=== PATIENT | female | born 1965 | race Caucasian/White ===

== ENCOUNTER → 2018-02-05 | Outpatient (CLI) | payer BC ==
[2018-02-05 12:59] LABS: HCT 44.5 % (34.0-46.0); MCH 29.9 pg (25.0-35.0); MCHC 33.8 g/dL (31.0-37.0); MCV 88.5 fL (80.0-100.0); Mean Platelet Volume 8.4; Platelet Count 292 k/uL (150-450); RBC 5.03 m/uL (3.80-5.40); RDW 12.5 % (11.5-15.5); WBC 7.7 k/uL (3.8-10.6)
[2018-02-05 13:00] LABS: Basophils % (A) 1 %; Eosinophils # (A) 0.3 k/uL (0-0.7); Eosinophils % (A) 4 %; Lymphocytes # (A) 1.8 k/uL (1.0-4.8); Lymphocytes % (A) 23 %; Monocytes # (A) 0.4 k/uL (0-1.0); Monocytes % (A) 6 %; Neutrophils # (A) 4.9 k/uL (1.3-7.7); Neutrophils % (A) 64 %
[2018-02-05 23:11] LABS: Albumin 4.1 g/dL (3.80-4.90); Albumin/Globulin Ratio 2.16 (1.20-2.10); Anion Gap 6.6 mmol/L (4.00-12.00); Calcium 9.3 mg/dL (8.7-10.3); Carbon Dioxide 26.4 mmol/L (21.6-31.8); Globulin 1.9 g/dL (1.6-3.3); Potassium 4.2 mmol/L (3.5-5.5); Total Bilirubin 0.4 mg/dL (0.3-1.2)
[2018-02-05 23:43] LABS: Hemoglobin A1C 11.6 % (4.0-6.0)
== END ==
LOC: LABWHC1 11:46
PROVIDERS: ATTEND Family Medicine
DX: E11.9 Type 2 diabetes mellitus without complications (principal); E78.00 Pure hypercholesterolemia, unspecified
CPT/HCPCS: 36415; 80053; 80061; 82043; 82570; 83036; 85025

== ENCOUNTER → 2018-02-05 | Outpatient (CLI) | payer BC | END | disposition home or self-care (01) | LOC: LABPAT 11:43 | PROVIDERS: ATTEND Obstetrics & Gynecology | DX: Z01.818 Encounter for other preprocedural examination (principal); N87.9 Dysplasia of cervix uteri, unspecified | CPT/HCPCS: 93005 ==

== ENCOUNTER → 2018-02-09 | Outpatient (CLI) | payer BC ==
--- NOTE | 2018-02-11 09:32 | MM ---
Reason for exam: screening (asymptomatic). Last mammogram was performed 3 years and 1 month ago. History: Patient is postmenopausal. Family history of breast cancer in mother at age 70. Physical Findings: A clinical breast exam by your physician is recommended on an annual basis and results should be correlated with mammographic findings. MG 3D Screening Mammo W/Cad Bilateral CC and MLO view(s) were taken. Prior study comparison: January 03, 2015, bilateral MG 3d screening mammo w/cad. There are scattered fibroglandular densities. No significant changes when compared with prior studies. ASSESSMENT: Negative, BI-RAD 1 RECOMMENDATION: Routine screening mammogram of both breasts in 1 year.
== END | disposition home or self-care (01) ==
LOC: RADMAMWWP 09:58
PROVIDERS: ATTEND Family Medicine
DX: Z12.31 Encounter for screening mammogram for malignant neoplasm of breast (principal)
CPT/HCPCS: 77063; 77067

== ENCOUNTER → 2018-07-30 | Outpatient (CLI) | payer BC ==
[2018-07-30 16:18] LABS: African American GFR (CKD) 113.8 (60.0-200.0); Albumin/Globulin Ratio 1.82 (1.60-3.17); Anion Gap 4.4 mmol/L (4.00-12.00); BUN/Creat Ratio 21.43 Ratio (12.00-20.00); Calcium 9.2 mg/dL (8.7-10.3); Carbon Dioxide 27.6 mmol/L (21.6-31.8); Globulin 2.2 g/dL (1.6-3.3); LDL Cholesterol,Calculated 137.2 mg/dL (0.0-131.0); Potassium 4.2 mmol/L (3.5-5.5); Total Bilirubin 0.6 mg/dL (0.3-1.2); Total Protein 6.2 g/dL (6.2-8.2); VLDL Calculation 44.8 mg/dL (5.00-40.00)
[2018-07-30 17:16] LABS: Hemoglobin A1C 11.4 % (4.0-6.0)
== END | disposition home or self-care (01) ==
LOC: LABWHC1 10:53
PROVIDERS: ATTEND Family Medicine
DX: E78.5 Hyperlipidemia, unspecified (principal); I10 Essential (primary) hypertension; E11.9 Type 2 diabetes mellitus without complications
CPT/HCPCS: 36415; 80053; 80061; 82043; 82570; 83036

== ENCOUNTER → 2018-07-30 | Outpatient (CLI) | payer BC ==
[2018-07-30 11:25] LABS: Basophils % (A) 1 %; Eosinophils # (A) 0.2 k/uL (0-0.7); Eosinophils % (A) 3 %; HCT 45.7 % (34.0-46.0); Lymphocytes # (A) 1.6 k/uL (1.0-4.8); Lymphocytes % (A) 25 %; MCH 28.9 pg (25.0-35.0); MCHC 32.9 g/dL (31.0-37.0); MCV 87.8 fL (80.0-100.0); Mean Platelet Volume 9.4; Monocytes # (A) 0.5 k/uL (0-1.0); Monocytes % (A) 8 %; Neutrophils # (A) 3.9 k/uL (1.3-7.7); Neutrophils % (A) 61 %; Platelet Count 242 k/uL (150-450); RDW 15.3 % (11.5-15.5); WBC 6.3 k/uL (3.8-10.6)
== END | disposition home or self-care (01) ==
LOC: LABPAT 10:51
PROVIDERS: ATTEND Obstetrics & Gynecology
DX: Z01.812 Encounter for preprocedural laboratory examination (principal); N87.1 Moderate cervical dysplasia
CPT/HCPCS: 85025

== ENCOUNTER 2018-08-05 08:54 | Day surgery (SDC) | payer BC ==
[2018-08-03 14:22] VITALS: BMI 34.0
[~2018-08-05 08:54] MED LIST: DEXAMETHASONE SOD PHOSPHATE 10 MG/ML 1 ML VIAL IV ONE; HYDROmorphone 0.5 MG/0.5 ML SYRINGE IVP PRN; LACTATED RINGERS 1,000 ML IV SCH; MIDAZOLAM 2 MG/2 ML VIAL IV PRN; ONDANSETRON 4 MG/2 ML VIAL IVP ONE; SCOPOLAMINE 1.5MG/72HR PATCH TRANSDERM ONE; ceFAZolin IN SWFI 2 GM/20 ML SYRINGE IVP ONE
[2018-08-05 09:31] LABS: Glucose,Whole Blood 272 mg/dL (75-99)
[2018-08-05] MEDS ORDERED: INSULIN ASPART (NovoLOG) 100 UNIT/ML VIAL SQ ONE (09:32)
[2018-08-05] MEDS ORDERED: KETOROLAC 30 MG/ML 1 ML VIAL IVP PRN (10:26)
[2018-08-05] MEDS ORDERED: SIMETHICONE 80 MG CHEWABLE PO PRN (10:26)
[2018-08-05] MEDS ORDERED: ONDANSETRON 4 MG/2 ML VIAL IVP PRN (10:26)
[2018-08-05] MEDS ORDERED: diphenhydrAMINE 50 MG/ML 1 ML VIAL IVP PRN (10:26)
[2018-08-05] MEDS ORDERED: METOCLOPRAMIDE 5 MG/ML 2 ML VIAL IVP PRN (10:26)
[2018-08-05] MEDS ORDERED: Acetaminophen-Codeine 300-30mg TAB PO PRN ×2 (10:26)
[2018-08-05] MEDS ORDERED: IBUPROFEN 600 MG TAB PO PRN (10:26)
[2018-08-05] MEDS ORDERED: LACTATED RINGERS 1,000 ML IV SCH (10:30)
[2018-08-05 10:33] LABS: Glucose,Whole Blood 264 mg/dL (75-99)
[2018-08-05] MEDS ORDERED: PROPOFOL 10 MG/ML 20 ML VIAL IV ONE (10:38)
[2018-08-05] MEDS ORDERED: fentaNYL (PF) 50 MCG/ML 2 ML AMP ONE (10:38)
[2018-08-05] MEDS ORDERED: MIDAZOLAM 2 MG/2 ML VIAL ONE (10:38)
[2018-08-05] MEDS ORDERED: FERRIC SUBSULFATE (MONSELS) JAR TOPICAL ONE (11:00)
[2018-08-05] MEDS ORDERED: IODINE/POTASS IOD (LUGOLS) 8 ML BTL TOPICAL ONE (11:00)
--- NOTE | 2018-08-05 11:14 | P.OP ---
Date of Procedure: 08/05/18 Preoperative Diagnosis: #1. Endocervical moderate dysplasia Postoperative Diagnosis: Same Procedure(s) Performed: #1. Cold knife cervical conization Anesthesia: other (Gen. by face mask) Surgeon: Santana Novak Estimated Blood Loss (ml): 5 IV fluids (ml): 600 Urine output (ml): 100 Pathology: other (Cervical cone) Condition: stable Disposition: PACU Operative Findings: Intraoperatively, the cervix was noted to be relatively flush with the apex of the vagina indicating a possible history of previous cervical surgery. After staining with Lugol strong iodine, there was no ectocervical areas that did not take up stain indicating no external lesions. A cone was taken to the depth of approximately 2 cm by approximately 1-1/2 cm in sideways dimensions with the endocervix noted to be traveling directly through the middle of the cone. It was removed intact and sent for pathological diagnoses. Description of Procedure: The patient was prepped and draped in usual fashion after general anesthesia was administered by the anesthesiologist. A weighted speculum was placed and the bladder drained of approximately 100 mL of clear joselin urine. The anterior lip of the cervix was grasped with a single-tooth tenaculum and the unusual and relatively flat architecture of the cervical vaginal junction was noted. A stay suture was placed from 10:00 to 8:00 at the cervicovaginal junction into the body of the cervix using 0 Vicryl and firmly tied down. A mirroring stitch was placed from 2:00 to 4:00 on the other side and firmly tied down. The tenaculum was then removed. The cervix was stained with Lugol's strong iodine and there was noted to be no ectocervical areas that were nonstaining. Approximately 1/2- 3/4 of the centimeter of margin was left outside the cervical os where the incision was intended to be made. A uterine sound was placed through the cervix to the fundus of the uterus for guidance. An 11 blade scalpel was utilized to make a cone shaped wedge around the os to a depth of approximately 2 cm circumferentially after which time the sound was removed and the colon grasped from anterior to posterior. Traction as well as continued dissection using the scalpel were utilized to divided at its base. The probe was passed through the cone and noted to be symmetrical throughout with the endocervix directly in the middle of the cone. The bed of the cone was then thoroughly cauterized from base to outer aspect with ball cautery. One application of Monsel's solution was then applied at the end. There was minimal ongoing bleeding at any time during the procedure and no ongoing bleeding at the end. The stay sutures were left in place but cut short and all instrumentation removed. Estimated blood loss for the case was less than 5 mL. There were no complications. All sponge, instrument, and needle counts were correct. The patient tolerated the procedure well and proceeded to the recovery room in stable condition.
[2018-08-05 11:23] VITALS: TEMP 97.4
[2018-08-05 11:31] LABS: Glucose,Whole Blood 235 mg/dL (75-99)
[2018-08-05 12:04] VITALS: RESP 16
[2018-08-05] MEDS ORDERED: SODIUM CHLORIDE 0.9% 1,000 ML IV ONE (12:07)
[2018-08-05 12:29] VITALS: BP 154/94; PULSE 81
== END 2018-08-05 12:47 | disposition home or self-care (01) ==
LOC: OR 08:54
PROVIDERS: ATTEND Obstetrics & Gynecology
DX: N87.1 Moderate cervical dysplasia (principal); Z79.1 Long term (current) use of non-steroidal anti-inflammatories (NSAID); Z79.891 Long term (current) use of opiate analgesic; Z79.899 Other long term (current) drug therapy; Z83.3 Family history of diabetes mellitus; Z82.49 Family history of ischemic heart disease and other diseases of the circulatory system; Z80.3 Family history of malignant neoplasm of breast; Z80.0 Family history of malignant neoplasm of digestive organs; F17.210 Nicotine dependence, cigarettes, uncomplicated
CPT/HCPCS: 88307; 57520; J2250; J2405; J3010; J2704

== ENCOUNTER → 2019-12-15 | Outpatient (CLI) | payer SELFPAY ==
[2019-12-15 13:39] LABS: Basophils # (A) 0.1 k/uL (0-0.2); Basophils % (A) 1 %; Eosinophils # (A) 0.2 k/uL (0-0.7); Eosinophils % (A) 3 %; HCT 45.5 % (34.0-46.0); Lymphocytes # (A) 1.8 k/uL (1.0-4.8); Lymphocytes % (A) 21 %; MCH 30.2 pg (25.0-35.0); MCHC 32.9 g/dL (31.0-37.0); MCV 91.6 fL (80.0-100.0); Mean Platelet Volume 8.7; Monocytes # (A) 0.5 k/uL (0-1.0); Monocytes % (A) 6 %; Neutrophils # (A) 5.7 k/uL (1.3-7.7); Neutrophils % (A) 68 %; Platelet Count 248 k/uL (150-450); RBC 4.97 m/uL (3.80-5.40); RDW 12.3 % (11.5-15.5); WBC 8.4 k/uL (3.8-10.6)
[2019-12-15 20:04] LABS: Albumin 4.3 g/dL (3.80-4.90); Albumin/Globulin Ratio 2.15 (1.60-3.17); Anion Gap 6.1 mmol/L (4.00-12.00); BUN/Creat Ratio 21.43 Ratio (12.00-20.00); Calcium 9.2 mg/dL (8.7-10.3); Carbon Dioxide 25.9 mmol/L (21.6-31.8); Chol/HDL Ratio 7.39; LDL Cholesterol,Calculated 149.4 mg/dL (0.0-131.0); Non-African American GFR(CKD) 97.5 (60.0-200.0); Potassium 4.2 mmol/L (3.5-5.5); Total Bilirubin 0.5 mg/dL (0.3-1.2); Total Protein 6.3 g/dL (6.2-8.2); VLDL Calculation 61.6 mg/dL (5.00-40.00)
[2019-12-15 22:01] LABS: Microalbumin Creatinine Ratio <30 mg/g Creat (0-30); Urine Creatinine 18.4 mg/dL
[2019-12-15 22:13] LABS: Hemoglobin A1C 9.7 % (4.0-6.0)
== END | disposition home or self-care (01) ==
LOC: LABWHC1 12:33
PROVIDERS: ATTEND Family Medicine
DX: Z00.00 Encounter for general adult medical examination without abnormal findings (principal); E78.5 Hyperlipidemia, unspecified; F17.210 Nicotine dependence, cigarettes, uncomplicated; E11.9 Type 2 diabetes mellitus without complications
CPT/HCPCS: 36415; 80053; 80061; 82043; 82570; 83036; 85025

== ENCOUNTER → 2021-09-05 | Outpatient (CLI) | payer BC ==
[2021-09-05 17:38] LABS: Basophils # (A) 0.04 X 10*3/uL (0.00-0.10); Basophils % (A) 0.6 %; Eosinophils # (A) 0.19 X 10*3/uL (0.04-0.35); Eosinophils % (A) 2.7 %; HCT 44.8 % (37.2-46.3); HGB 14.5 g/dL (12.0-15.0); Immature Grans, Automated 0.1 %; Lymphocytes # (A) 1.49 X 10*3/uL (0.90-5.00); Lymphocytes % (A) 21.5 %; MCH 28.8 pg (27.0-32.0); MCHC 32.4 g/dL (32.0-37.0); MCV 88.9 fL (80.0-97.0); Monocytes % (A) 8.7 %; NRBC Per 100 WBC 0 /100 WBCS (0.0-0.0); Neutrophils # (A) 4.59 X 10*3/uL (1.80-7.70); Neutrophils % (A) 66.4 %; Platelet Count 289 X 10*3/uL (140-440); RBC 5.04 X 10*6/uL (4.10-5.20); RDW 12.3 % (11.5-14.5); WBC 6.92 X 10*3/uL (4.50-10.00)
[2021-09-05 18:06] LABS: ALT 20 U/L (8-44); AST 15 U/L (13-35); African American GFR (CKD) 103.2 (60.0-200.0); Albumin 4.1 g/dL (3.8-4.9); Albumin/Globulin Ratio 1.78 (1.60-3.17); Alkaline Phosphatase 88 U/L (41-126); BUN/Creat Ratio 22.79 Ratio (12.00-20.00); Calcium 9.5 mg/dL (8.7-10.3); Carbon Dioxide 25.3 mmol/L (20.0-27.5); Chloride 104 mmol/L (96-109); Globulin 2.3 g/dL (1.6-3.3); Glucose 228 mg/dL (70-110); Iron 38 ug/dL (50-170); Non-African American GFR(CKD) 89.1 (60.0-200.0); Potassium 4.5 mmol/L (3.5-5.5); Sodium 140 mmol/L (135-145); Total Bilirubin <0.15 mg/dL (0.30-1.20); Total Iron Binding Capacity 312 ug/dL (228-460); Total Protein 6.4 g/dL (6.2-8.2)
[2021-09-05 18:27] LABS: Chol/HDL Ratio 10.37 Ratio
[2021-09-06 01:31] LABS: Microalbumin Creatinine Ratio <30 mg/g Creat (0-30); Urine Creatinine 95.7 mg/dL (28.0-217.0)
== END | disposition home or self-care (01) ==
LOC: LABWHC1 10:38
PROVIDERS: ATTEND Family Medicine
DX: E11.9 Type 2 diabetes mellitus without complications (principal); E78.5 Hyperlipidemia, unspecified; R53.83 Other fatigue
CPT/HCPCS: 36415; 80053; 80061; 82043; 82570; 83036; 83540; 83550; 83721; 84443; 85025

== ENCOUNTER → 2023-05-20 | Outpatient (CLI) | payer BC ==
--- NOTE | 2023-05-21 12:15 | MM ---
Reason for Exam: Screening (asymptomatic). Last mammogram was performed 5 year(s) and 4 month(s) ago. Patient History: Menarche at age 9. First Full-Term at age 28. Postmenopausal. Mother had breast cancer, age 70. Risk Values: Merle 5 year model risk: 2.9%. NCI Lifetime model risk: 15.9%. Prior Study Comparison: 01/03/2015 Bilateral Screening Mammogram, [facility]. 02/09/2018 Bilateral Screening Mammogram, [facility]. Tissue Density: The breasts are heterogeneously dense, which may obscure small masses. Findings: Analyzed By CAD. There is no suspicious group of microcalcifications or new suspicious mass in either breast. Overall Assessment: Negative, BI-RAD 1 Management: Screening Mammogram of both breasts in 1 year. . Patient should continue monthly self-breast exams. A clinical breast exam by your physician is recommended on an annual basis. This exam should not preclude additional follow-up of suspicious palpable abnormalities. Note on Merle scores and lifetime risk: 1. A Merle score greater than 3% is considered moderate risk. If this is the case, consider specialist referral to assess eligibility for a risk reducing agent. 2. If overall lifetime risk for the development of breast cancer is 20% or higher, the patient may qualify for future screening with alternating mammogram and breast MRI. Electronically signed and approved by: Israel Esqueda M.D. [facility]
== END | disposition home or self-care (01) ==
LOC: RADMAMWWP 15:08
PROVIDERS: ATTEND Family Medicine
DX: Z12.31 Encounter for screening mammogram for malignant neoplasm of breast (principal); Z80.3 Family history of malignant neoplasm of breast; Z78.0 Asymptomatic menopausal state
CPT/HCPCS: 77063; 77067

== ENCOUNTER → 2023-05-29 | Outpatient (CLI) | payer BC ==
[2023-05-29 22:31] LABS: Basophils # (A) 0.06 X 10*3/uL (0.00-0.10); Eosinophils # (A) 0.21 X 10*3/uL (0.04-0.35); Eosinophils % (A) 3.4 %; HCT 45.7 % (37.2-46.3); HGB 14.9 g/dL (12.0-15.0); Lymphocytes # (A) 1.35 X 10*3/uL (0.90-5.00); Lymphocytes % (A) 21.8 %; MCH 29.5 pg (27.0-32.0); MCHC 32.6 g/dL (32.0-37.0); MCV 90.5 FL (80.0-97.0); Mean Platelet Volume 12.2 FL (9.5-12.2); Monocytes % (A) 9.7 %; NRBC Per 100 WBC 0 X 10*3/uL (0.00-0.01); Neutrophils # (A) 3.97 X 10*3/uL (1.80-7.70); Neutrophils % (A) 63.9 %; Platelet Count 284 X 10*3/uL (140-440); RBC 5.05 X 10*6/uL (4.10-5.20); RDW 12.1 % (11.5-14.5)
[2023-05-29 22:41] LABS: ALT 20 U/L (8-44); AST 13 U/L (13-35); Albumin 4.2 g/dL (3.8-4.9); Albumin/Globulin Ratio 1.83 Ratio (1.60-3.17); Alkaline Phosphatase 100 U/L (41-126); BUN/Creat Ratio 30.17 Ratio (12.00-20.00); Blood Urea Nitrogen 18.1 mg/dL (9.0-27.0); Calcium 9.6 mg/dL (8.7-10.3); Carbon Dioxide 25.8 mmol/L (21.6-31.8); Chloride 105 mmol/L (96-109); Globulin 2.3 g/dL (1.6-3.3); Glucose 265 mg/dL (70-110); LDL Cholesterol,Calculated 137.9 mg/dL (0.0-131.0); Potassium 4.7 mmol/L (3.5-5.5); Sodium 142 mmol/L (135-145); Total Bilirubin 0.4 mg/dL (0.3-1.2); Total Protein 6.5 g/dL (6.2-8.2)
[2023-05-30 07:28] LABS: Microalbumin Creatinine Ratio <20 mg/g Cr (0-30); Urine Creatinine 59.7 mg/dL (28.0-217.0)
== END | disposition home or self-care (01) ==
LOC: LABWHC1 11:02
PROVIDERS: ATTEND Family Medicine
DX: Z00.00 Encounter for general adult medical examination without abnormal findings (principal); I10 Essential (primary) hypertension; E11.65 Type 2 diabetes mellitus with hyperglycemia; E11.319 Type 2 diabetes mellitus with unspecified diabetic retinopathy without macular edema; Z79.84 Long term (current) use of oral hypoglycemic drugs; F17.210 Nicotine dependence, cigarettes, uncomplicated
CPT/HCPCS: 36415; 80053; 80061; 82043; 82570; 83036; 85025

== ENCOUNTER → 2024-04-22 | Outpatient (CLI) | payer SELFPAY ==
[2024-04-23 06:28] LABS: Basophils # (A) 0.08 X 10*3/uL (0.00-0.10); Eosinophils # (A) 0.24 X 10*3/uL (0.04-0.35); Eosinophils % (A) 2.9 %; HCT 41.1 % (37.2-46.3); HGB 13.4 g/dL (12.0-15.0); Lymphocytes # (A) 1.25 X 10*3/uL (0.90-5.00); Lymphocytes % (A) 15.3 %; MCH 29.9 pg (27.0-32.0); MCHC 32.6 g/dL (32.0-37.0); MCV 91.7 FL (80.0-97.0); Mean Platelet Volume 11.7 FL (9.5-12.2); Monocytes % (A) 8.6 %; NRBC Per 100 WBC 0 X 10*3/uL (0.00-0.01); Neutrophils # (A) 5.88 X 10*3/uL (1.80-7.70); Platelet Count 320 X 10*3/uL (140-440); RBC 4.48 X 10*6/uL (4.10-5.20); RDW 12.1 % (11.5-14.5); WBC 8.17 X 10*3/uL (4.50-10.00)
[2024-04-23 09:11] LABS: ALT 41 U/L (8-44); AST 27 U/L (13-35); Albumin 4.2 g/dL (3.8-4.9); Albumin/Globulin Ratio 2.21 Ratio (1.60-3.17); Alkaline Phosphatase 108 U/L (41-126); Blood Urea Nitrogen 18.2 mg/dL (9.0-27.0); Calcium 9.1 mg/dL (8.7-10.3); Carbon Dioxide 22.8 mmol/L (21.6-31.8); Chloride 105 mmol/L (96-109); Chol/HDL Ratio 7.78 Ratio; Globulin 1.9 g/dL (1.6-3.3); Glucose 200 mg/dL (70-110); LDL Cholesterol,Calculated 124.8 mg/dL (0.0-131.0); Potassium 4.4 mmol/L (3.5-5.5); Sodium 140 mmol/L (135-145); Total Bilirubin <0.2 mg/dL (0.3-1.2); Total Protein 6.1 g/dL (6.2-8.2)
== END | disposition home or self-care (01) ==
LOC: LABWHC1 10:24
PROVIDERS: ATTEND Family Medicine
DX: E11.9 Type 2 diabetes mellitus without complications (principal); E78.5 Hyperlipidemia, unspecified
CPT/HCPCS: 36415; 80053; 80061; 82043; 82570; 83036; 85025